=== PATIENT | male | born 1955 | race African-American/Black ===

== ENCOUNTER 2017-06-02 02:45 | Emergency (ER) | payer OTHER ==
[~2017-06-02] VITALS: Ht 180.3 cm; Wt 82.6 kg
[~2017-06-02 02:45] MED LIST: CLON-528 TD; HYDR-3229 PO; LOSA50TA39 PO; NITR0.4S23 SL; PANT40EC PO; TRAM50TA1 PO
[2017-06-02 02:49] VITALS: BP 118/73
--- NOTE | 2017-06-02 02:54 | NUR ---
TO LOBBY, JO , A/W FOR BED IN STABLE CONDITION, CLARITA NOTED
--- NOTE | 2017-06-02 03:17 | NUR ---
61Y M BIB SELF C/O RIGHT HIP PAIN X 1 MONTH. PT DENIES ANY TRAUMA OR FALL. PT AMBULATED WITH CANE. PT AAOX 4. PT STATES PAIN RADIATED TO THE RIGHT KNEE. PT STATES PAIN IS 10/10. PT DENIES ANY N/V/D, SOB, CP AT THE MOMENT.
[2017-06-02] MEDS ORDERED: fentaNYL 0.05 MG/ML VIAL IM ONE (03:30)
--- NOTE | 2017-06-02 05:40 | NUR ---
Patient discharged with v/s stable. Written and verbal after care instructions given and explained. Patient alert, oriented and verbalized understanding of instructions. Ambulatory with steady gait. All questions addressed prior to discharge. ID band removed. Patient advised to follow up with PMD. Rx of NORCO 5/325 given. Patient educated on indication of medication including possible reaction and side effects. Opportunity to ask questions provided and answered.
[2017-06-02 05:41] VITALS: BP 128/64
== END 2017-06-02 05:41 | disposition home or self-care (01) ==
LOC: MED 02:45
DX: M25.551 Pain in right hip (principal); K21.9 Gastro-esophageal reflux disease without esophagitis; I10 Essential (primary) hypertension; F17.210 Nicotine dependence, cigarettes, uncomplicated
CPT/HCPCS: 72192; 96372; 99284; J3010

== ENCOUNTER 2017-06-04 20:42 | Inpatient (IN) | payer OTHER ==
[~2017-06-04] VITALS: Ht 180.3 cm; Wt 80.7 kg
[2017-06-04 20:50] VITALS: BP 161/90
--- NOTE | 2017-06-04 20:57 | NUR ---
TO LOBBY, VIA W/C, A/W BED, CLARITA SMITH NOTED
--- NOTE | 2017-06-05 01:31 | NUR ---
BIB WHEELCHAIR TO ER BED 12
--- NOTE | 2017-06-05 01:32 | NUR ---
61Y M BIB FAMILY C/O RIGHT HIP PAIN. PT STATES HE WAS HERE 2 DAYS AGO FOR THE SAME REASON BUT THE PAIN IS NOT TOLERABLE. PT DENIES ANY N/V/D,CP, SOB AT THE MOMENT. PT DENIES ANY FALL OR TRAUMA. PT AAOX4. BREATHING IS UNLABORED AND CLEAR BILAT.
[2017-06-05] MEDS ORDERED: NACL 0.9% 1,000 ML IV ONE (02:25)
[2017-06-05] MEDS ORDERED: DIAZEPAM 5 MG TAB PO ONE (02:25)
[2017-06-05] MEDS ORDERED: HYDROmorphone PFS 2 MG/ML SYR IVP ONE ×2 (02:25→04:35)
[2017-06-05] MEDS ORDERED: DEXAMETHASONE 10 MG/ML VIAL IVP ONE (02:25)
[2017-06-05 02:58] LABS: BASOPHILS # (AUTO) 0.2 K/uL (0.00-0.22); BASOPHILS % (AUTO) 1.6 % (0.0-2.0); EOSINOPHILS # (AUTO) 0.1 K/uL (0-0.4); EOSINOPHILS % (AUTO) 0.6 % (0.0-4.0); HEMATOCRIT 46.3 % (36-52); HEMOGLOBIN 15.2 g/dL (12.0-18.0); LYMPHOCYTES # (AUTO) 1.1 K/uL (2.0-11.5); LYMPHOCYTES % (AUTO) 8.7 % (20.5-51.1); MEAN CORPUSCULAR HEMOGLOBIN 32 pg (27-31); MEAN CORPUSCULAR HGB CONC 33 g/dL (33-37); MEAN CORPUSCULAR VOLUME 99 fL (80-94); MONOCYTES # (AUTO) 0.8 K/uL (0.8-1.0); MONOCYTES % (AUTO) 6.1 % (1.7-9.3); NEUTROPHILS # (AUTO) 10.8 K/uL (1.8-7.7); PLATELET COUNT (AUTO) 237 K/uL (140-450); RED CELL DISTRIBUTION WIDTH 12.5 % (11.6-13.7)
[2017-06-05 03:13] LABS: CREATININE 1.4 mg/dL (0.7-1.3)
[2017-06-05 03:18] LABS: ALBUMIN 4.1 g/dL (3.4-5.0); TOTAL BILIRUBIN 0.4 mg/dL (0.0-1.0)
[2017-06-05] MEDS ORDERED: ACETAMINOPHEN 325 MG TAB PO PRN (05:30)
[2017-06-05] MEDS ORDERED: hydrALAZINE 20 MG/ML VIAL IM PRN (05:30)
[2017-06-05] MEDS ORDERED: ONDANSETRON 4 MG/2 ML VIAL IVP PRN (05:30)
[2017-06-05] MEDS ORDERED: HYDROmorphone 1 MG/ML AMP IVP PRN (05:30)
--- NOTE | 2017-06-05 06:29 | NUR ---
Patient will be admitted to care of DR VERA. Admited to MS 105B. Will go to room 105B. Belongings list completed. Report to VERNELL.
[2017-06-05 06:50] VITALS: BP 149/98
--- NOTE | 2017-06-05 06:50 | NUR ---
PT ARRIVED ON THE UNIT VIA GURNEY FROM ER WITH C/O R HIP PAIN. PT AAOX4, NO S/S OF DISTRESS NOTED. RESPIRATIONS ARE EVEN AND UNLABORED. SKIN IS WARM AND DRY TO TOUCH, COLOR WNL. BOWEL SOUNDS PRESENT. IV TO L WRIST 18G, PATENT AND INTACT. INITIAL ASSESSMENT COMPLETED, PLAN OF CARE DISCUSSED WITH PT AND AT THE BEDSIDE, ALL SAFETY PRECAUTIONS MET, CALL LIGHT WITHIN REACH, WILL CONTINUE TO MONITOR.
--- NOTE | 2017-06-05 07:21 | NUR ---
GAVE REPORT TO THEO HUNTLEY FOR CONTINUITY OF CARE, PT IN STABLE CONDITION. NO S/S OF DISTRESS NOTED
--- NOTE | 2017-06-05 07:22 | NUR ---
RECEIVED REPORT FROM DEBONE PROCESSING SUPERVISOR NURSE. PATIENT LYING DOWN IN BED WATCHING TV. NO DISTRESS NOTED. PAIN WITHIN TOLERABLE AT THIS TIME. RESPIRATIONS EVEN, UNLABORED, ON ROOM AIR. AAOX4, CALM, COOPERATIVE, SKIN COLOR APPROPRIATE TO ETHNICITY, WARM TO TOUCH. SKIN IS INTACT. LUNGS CTA ON ALL LOBES. ABDOMEN SOFT, NON-DISTENDED. REVIEWED PLAN OF CARE WITH PATIENT. PATIENT VERBALIZED UNDERSTANDING. SAFETY MEASURES IN PLACE, FALL PREVENTIONS IN PLACE, CALL LIGHT WITHIN REACH. WILL CONTINUE TO MONITOR.
[2017-06-05 08:00] VITALS: BP 131/65
[2017-06-05] MEDS: ENOXAPARIN 40 MG/0.4 ML SYR SUBQ SCH (09:12)
--- NOTE | 2017-06-05 09:16 | NUR ---
PATIENT LYING DOWN IN BED WATCHING TV. NO DISTRESS NOTED. DENIES ANY PAIN. SCHEDULED MEDICATIONS DUE GIVEN. WILL CONTINUE TO MONITOR.
[2017-06-05] MEDS: HYDROcodone/APAP 5/325 MG 1 TAB TAB PO PRN (10:12)
--- NOTE | 2017-06-05 11:42 | NUR ---
PATIENT LYING IN BED SLEEPING, AROUSABLE BY VOICE. NO DISTRESS NOTED. PAIN WITHIN TOLERABLE. SAFETY MEASURES IN PLACE, CALL LIGHT WITHIN REACH. WILL CONTINUE TO MONITOR.
--- NOTE | 2017-06-05 13:00 | NUR ---
PATIENT LYING IN BED ON RIGHT SIDE. NO DISTRESS NOTED. PAIN ON RIGHT HIP WITHIN TOLERABLE AT THIS TIME. SAFETY MEASURES IN PLACE, CALL LIGHT WITHIN REACH. WILL CONTINUE TO MONITOR.
--- NOTE | 2017-06-05 15:00 | NUR ---
PATIENT LYING IN BED WATCHING TV. PAIN WITHIN TOLERABLE AT THIS TIME. NO DISTRESS NOTED. CONDITION UNCHANGED. WILL CONTINUE TO MONITOR.
--- NOTE | 2017-06-05 15:30 | NUR ---
DR. VERA AT BEDSIDE REVIEWING PLAN OF CARE WITH PATIENT. WILL CONTINUE TO MONITOR.
[2017-06-05] MEDS: HYDROmorphone PFS 2 MG/ML SYR IVP PRN ×2 (15:53→20:31)
[2017-06-05 16:00] VITALS: BP 135/59
--- NOTE | 2017-06-05 18:00 | NUR ---
PATIENT SITTING IN BED WITH DINNER TRAY IN FRONT. NO DISTRESS NOTED. DENIES ANY PAIN. URINE SAMPLE COLLECTED PER LAB. SAFETY MEASURES IN PLACE, CALL LIGHT WITHIN REACH. WILL CONTINUE TO MONITOR.
--- NOTE | 2017-06-05 19:20 | NUR ---
GAVE REPORT TO CARDIOLOGY NURSE PRACTITIONER NURSE FOR CONTINUITY OF CARE. PATIENT IN STABLE CONDITION.
--- NOTE | 2017-06-05 19:21 | NUR ---
RECEIVED REPORT FROM THEO HUNTLEY PT AAOX4, NO S/S OF DISTRESS NOTED. RESPIRATIONS ARE EVEN AND UNLABORED. SKIN IS WARM AND DRY TO TOUCH, COLOR WNL. BOWEL SOUNDS PRESENT. IV TO L WRIST 18G, PATENT AND INTACT. INITIAL ASSESSMENT COMPLETED, PLAN OF CARE DISCUSSED WITH PT AND AT THE BEDSIDE, ALL SAFETY PRECAUTIONS MET, CALL LIGHT WITHIN REACH, WILL CONTINUE TO MONITOR.
--- NOTE | 2017-06-05 20:50 | NUR ---
PTS BP 155/91, PT HAS SCHEDULED CLONIDINE. PT REFUSES TO TAKE CLONIDINE, PT STATED,"I DONT WANT THAT, THAT DOES NOT WORK FOR, DON'T GIVE ME THAT, I WANT MY HOME MEDICATION LISINOPRIL, THAT IS ALL I WILL TAKE." I EXPLAINED ABOUT PRN HYDRALAZINE WELL, AND PT REFUSES ALL BP MEDICATION AND ONLY WANTS LISINOPRIL. TOLD THE PT I WILL CALL THE DR. AND ASK ABOUT ORDERING LISINOPRIL.
--- NOTE | 2017-06-05 20:51 | NUR ---
PAGED DR. ARCE
[2017-06-05] MEDS: cloNIDine-TTS2 0.2 MG/24 HR 1 EA PATCH TD SCH (21:00)
--- NOTE | 2017-06-05 21:05 | NUR ---
DR. ARCE PAGED BACK, I EXPLAINED TO DR. ARCE THE PTS BP AND THE SITUATION THAT THE PT WILL ONLY TAKE HIS HOME MEDICATION LISNOPRILL. DR. 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 DR. ARCE THEN STATED, "THIS IS NOT AN EMERGENCY YOU SHOULD NOT HAVE CALLED ME FOR THIS." I STATED THAT PTS BP IS ELEVATED AND REFUSING ALL MEDS EXCEPT HIS HOME MED AND WANTED TO MAKE HIM AWARE IF HE WANTED TO ORDER IT. DR ARCE STATED, "I AM NOT ORDERING THAT MEDICATION THAT SHOULD BE DONE IN THE MORNING TIME WITH PRIMARY DOCTOR AND DO NOT CALL ABOUT THIS." PT MADE AWARE THAT HOME MEDICATION IS NOT ABLE TO BE ORDERED AND STILL STATES HE WILL NOT TAKE ANYTHING ELSE. PT EDUCATED ON RISKS AND BENEFITS OF TAKING MEDICATION BUT STILL REFUSES.
--- NOTE | 2017-06-05 21:06 | NUR ---
PTS STATES, "I WILL GIVE HIM HIS LISINOPRIL I HAVE IT HERE." I EDUCATED THAT SHE CANNOT DO THAT AND THAT I WILL NEED TO TAKE THE MEDICATION AWAY BECAUSE IT CANNOT BE AT THE BEDSIDE. BOTH AGREED. MEDICATION PUT IN BAG WITH PT LABEL AND PUT IN PHARMACY BIN
[2017-06-05 23:49] LABS: APPEARANCE,URINE CLEAR (CLEAR); BILIRUBIN,URINE NEGATIVE (NEGATIVE); BLOOD, URINE NEGATIVE (NEGATIVE); COLOR,URINE YELLOW (YELLOW); LEUKOCYTE ESTERASE ,URINE NEGATIVE (NEGATIVE); NITRITE, URINE NEGATIVE (NEGATIVE); PH,URINE 5.5 (5.0-9.0); UGLUCOSE NEGATIVE (NEGATIVE)
[2017-06-06] VITALS: BP 145/81
[2017-06-06] MEDS: HYDROmorphone PFS 2 MG/ML SYR IVP PRN ×6 (00:28→22:43)
[2017-06-06] MEDS: PANTOPRAZOLE 40 MG TABEC PO SCH (06:17)
[2017-06-06 06:52] LABS: HEMATOCRIT 41.2 % (36-52); HEMOGLOBIN 13.9 g/dL (12.0-18.0); MEAN CORPUSCULAR HEMOGLOBIN 33 pg (27-31); MEAN CORPUSCULAR HGB CONC 34 g/dL (33-37); MEAN CORPUSCULAR VOLUME 97 fL (80-94); PLATELET COUNT (AUTO) 236 K/uL (140-450); RED BLOOD CELL COUNT(AUTO) 4.23 MIL/uL (4.20-6.10); RED CELL DISTRIBUTION WIDTH 12.4 % (11.6-13.7); WHITE BLOOD COUNT (AUTO) 14.6 K/uL (4.8-10.8)
[2017-06-06 07:25] LABS: ALBUMIN 3.6 g/dL (3.4-5.0); ANION GAP 14.9 (8-16); CARBON DIOXIDE 26.2 mmol/L (21-32); CREATININE 1.2 mg/dL (0.7-1.3); POTASSIUM 4.1 mmol/L (3.5-5.1); TOTAL BILIRUBIN 0.3 mg/dL (0.0-1.0)
--- NOTE | 2017-06-06 07:30 | NUR ---
RECEIVED PT AAOX4. NO SOB NOTED. NO C/O PAIN AT THIS TIME. IV TO LT HAND PATENT AND INTACT. CHEST CLEAR. ABDOMEN SOFT, BOWEL SOUNDS PRESENT. NO EDEMA NOTED. INSTRUCTED PT TO CALL FOR ASSISTANCE, CALL LIGHT WITHIN REACH. PT VERBALIZED UNDERSTANDING.
--- NOTE | 2017-06-06 07:47 | NUR ---
REPORT GIVEN TO DAY NURSE FOR CONTINUITY OF CARE, PT IN STABLE CONDITION. NO S/S OF DISTRESS NOTED
[2017-06-06 08:07] LABS: LYMPHOCYTES % (MANUAL) 22 % (20-46)
[2017-06-06 08:08] LABS: MONOCYTES % (MANUAL) 9 % (5-12)
--- NOTE | 2017-06-06 08:39 | NUR ---
PATIENT HAS BEEN SCREENED AND CATEGORIZED LOW NUTRITION RISK. PATIENT WILL BE SEEN IN 7 DAYS. 06/11/[address] Addendum: 06/07/17 at [address] PATIENT HAS BEEN RESCREENED AND RECATEGORIZED MODERATE NUTRITION RISK. PATIENT WILL BE SEEN IN 3-5 DAYS OF ADMISSION. 06/07/16 - 06/09/[address]
[2017-06-06] MEDS ORDERED: hydrALAZINE 10 MG TAB PO SCH (09:00)
[2017-06-06] MEDS ORDERED: LOSARTAN 50 MG TAB PO SCH (09:00)
[2017-06-06] MEDS: cloNIDine-TTS2 0.2 MG/24 HR 1 EA PATCH TD SCH (09:00)
--- NOTE | 2017-06-06 09:45 | NUR ---
PT REFUSED ALL HIS SCHEDULED BP MEDS, STATED HE ONLY TAKES LISINOPRIL. RISKS AND BENEFITS EXPLAINED, PT VERBALIZED UNDERSTANDING. WILL FOLLOW UP WITH PT'S ATTENDING DOCTOR.
[2017-06-06] MEDS: ENOXAPARIN 40 MG/0.4 ML SYR SUBQ SCH (09:59)
[2017-06-06 10:22] VITALS: BP 131/76
--- NOTE | 2017-06-06 10:30 | NUR ---
PHYSICAL THERAPY ON GOING AT THE BEDSIDE.
--- NOTE | 2017-06-06 15:40 | NUR ---
CM NOTE INITIAL REVIEW FAXED TO [facility] / FAX# [phone], ATTN: [facility] #[phone]
--- NOTE | 2017-06-06 15:45 | NUR ---
DR. VREA AND CUSTOMER SERVICE ADMINISTRATOR CHARLENE SPOKE WITH PT AND PT'S TERRI REGARDING PT'S D/C PLANNING TO REHAB FACILITY. VERBALIZED UNDERSTANDING.
--- NOTE | 2017-06-06 15:45 | NUR ---
PT AWAKE. NO SOB NOTED. NO COMPLAINTS MADE. ENDORSED TO NEXT SHIFT NURSE FOR CONTINUITY OF CARE.
[2017-06-06] MEDS ORDERED: HYDR-9 PO (15:54)
[2017-06-06 16:00] VITALS: BP 142/79
[2017-06-06] MEDS ORDERED: NITROGLYCERIN 0.4 MG SL PRN (16:15)
[2017-06-06] MEDS ORDERED: NITROGLYCERIN 0.4 MG TAB SL PRN (16:20)
--- NOTE | 2017-06-06 19:30 | NUR ---
PT AWAKE. NO SOB NOTED. NO COMPLAINTS MADE. ENDORSED TO NEXT SHIFT NURSE FOR CONTINUITY OF CARE.
--- NOTE | 2017-06-06 19:31 | NUR ---
RECEIVED BEDSIDE REPORT FROM DAY SHIFT NURSE PHYLLIS RN, PT STABLE, NO DISTRESS NOTED, CALL LIGHT WITHIN REACH, REPORTED HAVING TOLERABLE PAIN AT THIS MOMENT, INITIAL ASSESSMENT DONE, ALL SAFETY PRECAUTION MET, WILL CONTINUE TO MONITOR.
--- NOTE | 2017-06-06 22:43 | NUR ---
PT REPORTED HAVING PAIN OF 10/10 ON L HIP, MEDICATION GIVEN, PT TOLERATED WELL, NO DISTRESS NOTED, CALL LIGHT WITHIN REACH, WILL CONTINUE TO MONITOR.
--- NOTE | 2017-06-06 23:13 | NUR ---
RECHECKED ON PT, PT SAID THAT HE IS STILL IN PAIN, THAT THE PAIN MEDICATION DID NOT WORK, GAVE PT WARM COMPRESS, WILL CONTINUE TO MONITOR PT.
[2017-06-06] MEDS: HYDROcodone/APAP 5/325 MG 1 TAB TAB PO PRN (23:45)
--- NOTE | 2017-06-06 23:45 | NUR ---
PT STILL COMPLAINED OF PAIN, MEDICATION GIVEN, PT TOLERATED WELL, NO DISTRESS NOTED, V/S STABLE, CALL LIGHT WITHIN REACH, WILL CONTINUE TO MONITOR.
[2017-06-07] VITALS: BP 143/83
--- NOTE | 2017-06-07 01:42 | NUR ---
PT STILL C/O PAIN ON THE HIP AND LEG, CALLED AND TALKED TO DR. ARCE REGARDING PT, DR STATED UNDERSTANDING AND THAT HE DOES NOT WANT TO CHANGE ANY PAIN MEDICATION. NOTIFY PT REGARDING DR. MORGAN. PT STABLE, NO DISTRESS NOTED, CALL LIGHT WITHIN REACH. WILL CONTINUE TO MONITOR.
[2017-06-07] MEDS: HYDROmorphone PFS 2 MG/ML SYR IVP PRN ×4 (02:47→14:37)
--- NOTE | 2017-06-07 06:26 | NUR ---
PT C/O OF PAIN 10/10 ON L HIP AND LEG, MEDICATION GIVEN, PT TOLERATED WELL, NO DISTRESS NOTED, CALL LIGHT WITHIN REACH, WILL CONTINUE TO MONITOR.
[2017-06-07] MEDS: PANTOPRAZOLE 40 MG TABEC PO SCH (06:30)
--- NOTE | 2017-06-07 07:16 | NUR ---
GAVE BEDSIDE REPORT TO DAY SHIFT NURSE PHYLLIS RN, ENDORSED PLAN OF CARE, PT STABLE, NO DISTRESS NOTED, CALL LIGHT WITHIN REACH.
[2017-06-07 08:36] VITALS: BP 135/74
[2017-06-07] MEDS ORDERED: [UNRECOGNIZED DRUG - CODE] PO SCH (09:00)
[2017-06-07] MEDS ORDERED: NON-FORMULARY ITEM (Lisinopril/Hydrochlorothiazide (Lisinopril-Hctz 20-25 mg Tab) 1 TAB) PO SCH (09:00)
--- NOTE | 2017-06-07 09:30 | NUR ---
PT CONSUMED 100% ON BREAKFAST SERVED. FOOD TOLERATED WELL.
[2017-06-07] MEDS: ENOXAPARIN 40 MG/0.4 ML SYR SUBQ SCH (10:03)
--- NOTE | 2017-06-07 11:00 | NUR ---
PHYSICAL THERAPY ON GOING AT THE BEDSIDE.
--- NOTE | 2017-06-07 14:30 | NUR ---
PER PT , HE EXPERIENCED PAIN ON HIS RT HIP TO RT LEG MORE WHENEVER HE GETS THE IVP DILAUDID. DR. VERA NOTIFIED, NO NEW ORDERS.
--- NOTE | 2017-06-07 14:35 | NUR ---
FAXED FACE SHEET, H&P, PT NOTES AND ORDER TO [facility] [phone]
--- NOTE | 2017-06-07 14:41 | NUR ---
INFORMATIONS REGARDING DIAGNOSIS OF LOVENOX, DILAUDID AND SCIATICA PER DR. VERA GIVEN TO PT. PT VERBALIZED UNDERSTANDING BUT PT REFUSED TO SIGN THE INSTRUCTION SIGNATURE PAGE.
--- NOTE | 2017-06-07 14:57 | NUR ---
SNF FOR PT. [facility].
--- NOTE | 2017-06-07 15:57 | NUR ---
RECEIVED A CALL FROM JACOB FROM [employer]. THEY CAN TAKE THE PATIENT TO ROOM 210B UNDER DR. HUGO. CALL REPORT TO [phone]. I SPOKE WITH CARINA FROM [facility]. THE AUTH FOR [employer] IS [id number]. THE AUTH FOR [facility] [place] [employer], , IS ALSO [id number]. I CALLED [facility] AND THEY WILL CARPENTRY PROFESSIONAL PATIENT BETWEEN 4:30 AND 5:30P.Jessi FERGUSON RN AWARE.
--- NOTE | 2017-06-07 16:00 | NUR ---
INFORMED PT REGARDING HIS TRANSFER TO [facility], PT STATED HE NEEDS A PRINT OUT REGARDING THE FACILITY. [facility] IN [place], ADDRESS AND TELEPHONE 3 GIVEN TO PT, VERBALIZED UNDERSTANDING. PT'S OWN MEDICATION (HOME MED) GIVEN BACK TO PT, PT VERBALIZED UNDERSTANDING.
--- NOTE | 2017-06-07 16:30 | NUR ---
REPORT GIVEN TO CHLOE-YUKO RIVETING MACHINE OPERATOR AT [facility]. VOICEMAIL MESSAGE LEFT TO PT'S TERRI REGARDING THE PT'S D/C DISPOSITION [facility] #[phone]
[2017-06-07] MEDS ORDERED: BACLOFEN 10 MG TAB PO SCH (17:00)
--- NOTE | 2017-06-07 17:00 | NUR ---
PT REFUSED TO SIGN D/C PAPERS STATED HE DOES NOT WANT TO GO TO A REHAB FACILITY, HE PREFERS [facility]. ALISSA-RN KENNEL HELPER AT THE BEDSIDE TALKING TO PT.
--- NOTE | 2017-06-07 17:10 | NUR ---
ARM BANDS AND IV REMOVED, CANNUL TIP INTACT. [facility] [employer] [facility] IN STABLE CONDITION. NO C/O PAIN AT THIS TIME. PT REFUSED TO SIGN D/C PAPER TRAY LINE SUPERVISOR NURSE AND ALINING INSPECTOR MADE AWARE.
[2017-06-08] MEDS ORDERED: LIDOCAINE 5% 1 EA PATCH TP SCH (09:00)
== END 2017-06-07 17:10 | DRG 554 ==
LOC: MED 20:42 → MTU 06-05 05:27
PROVIDERS: ADMIT Hospitalist; ATTEND Hospitalist
DX: M16.11 Unilateral primary osteoarthritis, right hip (principal); F17.210 Nicotine dependence, cigarettes, uncomplicated; K21.9 Gastro-esophageal reflux disease without esophagitis; I10 Essential (primary) hypertension
CPT/HCPCS: 36415; 80053; 81003; 85025; 85651; 86140; 87040; 87081; 96361; 96374; 96375; 96376; 97110; 97140; 97530; 99285; J1100; J1170; J1650; J7030